=== PATIENT | male | born 1980 | race Caucasian/White ===

== ENCOUNTER 2017-11-02 06:32 | Emergency (ER) | payer OTHER ==
[~2017-11-02] VITALS: Ht 185.4 cm; Wt 93.0 kg
[~2017-11-02 06:32] MED LIST: ACETAMINOPHEN-1 EAC1 PO; CELEBREX 200 M200 M1 PO; CEPHALEXIN 500500 M3 PO; CIPROFLOXACIN500 M1 PO; IBUPROFEN 800800 M1 PO; KEFLEX500 MG PO; NOHOMEMEDICATIONS
[2017-11-02 07:04] LABS: INFLUENZA A ANTIGEN None Detected (None Detect); INFLUENZA B ANTIGEN None Detected (None Detect)
[2017-11-02 07:25] LABS: HEMATOCRIT 43.1 % (42.0-52.0); HEMOGLOBIN 14.8 gm/dL (14.0-18.0); MCH 30.2 pg (26.0-34.0); MCHC 34.3 g/dL (28.0-37.0); MCV 88.1 fL (80.0-100.0); NUCLEATED RBCS 0 /100WBC; PLATELET COUNT* 170 thou/uL (150-400); RBC 4.89 mil/uL (4.50-6.00); WBC 4.9 thou/uL (4.0-11.0)
[2017-11-02 07:36] LABS: ANION GAP 6 mmol/L (7-16); BUN 14 mg/dL (7-18); CALCIUM 9.5 mg/dL (8.5-10.1); CHLORIDE 103 mmol/L (98-107); CO2 30 mmol/L (21-32); GLUCOSE 104 mg/dL (70-99); POTASSIUM 4.2 mmol/L (3.5-5.1); SODIUM 139 mmol/L (136-145)
[2017-11-02 07:43] LABS: ALBUMIN 3.9 g/dL (3.4-5.0); ALKALINE PHOSPHATASE 83 U/L (46-116); SGOT 41 U/L (15-37); SGPT 109 U/L (30-65); TOTAL BILIRUBIN 0.4 mg/dL (<0.1-1.0); TOTAL PROTEIN 7.7 g/dL (6.4-8.2); TROPONIN-I LEVEL <0.06 ng/mL (<0.06)
[2017-11-02 07:51] LABS: ABSOLUTE LYMPHOCYTES 0.1 thou/uL (0.8-5.3); ABSOLUTE MONOCYTES 0.3 thou/uL (0.0-1.2); ABSOLUTE NEUTROPHILS 4.5 thou/uL (1.6-8.1); PLATELET ESTIMATE ADEQUATE
[2017-11-02] MEDS ORDERED: ZPAK PO (07:51)
[2017-11-02] MEDS ORDERED: PREDNISONE 20 M20 M1 PO (07:51)
[2017-11-02 07:52] LABS: ANISOCYTOSIS 1+; POIKILOCYTOSIS 1+
[2017-11-02 08:02] VITALS: BP 140/93
--- NOTE | 2017-11-02 16:37 | EKG ---
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
== END 2017-11-02 08:03 | disposition home or self-care (01) ==
LOC: M.ERS 06:32
PROVIDERS: Emergency Medicine; Family Medicine
DX: R07.89 Other chest pain (principal); J06.9 Acute upper respiratory infection, unspecified

== ENCOUNTER → 2020-04-17 | Outpatient (CLI) | payer OTHER ==
[~2020-04-17] MED LIST changes: +PREDNISONE 20 M20 M1 PO; +ZPAK PO
== END ==
LOC: M.ULTRA 13:17
PROVIDERS: ATTEND Family Medicine
DX: N50.811 Right testicular pain (principal)

== ENCOUNTER 2020-09-16 13:53 | Emergency (ER) | payer OTHER ==
[~2020-09-16] VITALS: Ht 182.9 cm; Wt 93.0 kg
[2020-09-16 14:11] LABS: ABSOLUTE EOSINOPHILS 0.2 thou/uL (0.0-0.7); ABSOLUTE LYMPHOCYTES 2.3 thou/uL (0.8-5.3); ABSOLUTE MONOCYTES 0.5 thou/uL (0.0-1.2); BASOPHILS 0.5 %; EOSINOPHILS 2.5 %; HEMATOCRIT 43.7 % (42.0-52.0); HEMOGLOBIN 15.3 gm/dL (14.0-18.0); LYMPHOCYTES 32.7 %; MCH 31.1 pg (26.0-34.0); MCV 88.9 fL (80.0-100.0); MONOCYTES 7.2 %; NUCLEATED RBCS 0 /100WBC; PLATELET COUNT* 226 thou/uL (150-400); POLYS 57.1 %; RBC 4.91 mil/uL (4.50-6.00); RDW-CV 12.6 % (10.5-14.5); WBC 7.1 thou/uL (4.0-11.0)
[2020-09-16 14:22] LABS: CALCIUM 8.5 mg/dL (8.5-10.1); POTASSIUM 4.1 mmol/L (3.5-5.1)
[2020-09-16 14:26] LABS: APTT 27.5 Seconds (25.0-31.3); PROTIME 10.7 Seconds (9.20-11.50)
[2020-09-16 14:34] LABS: ALBUMIN 3.9 g/dL (3.4-5.0); CK-MB MASS 2.1 ng/mL (<0.5-3.6); MAGNESIUM 1.8 mg/dL (1.8-2.4); TOTAL BILIRUBIN 0.3 mg/dL (<0.1-1.0); TOTAL PROTEIN 7.6 g/dL (6.4-8.2)
[2020-09-16 14:50] VITALS: BP 137/89
--- NOTE | 2020-09-17 09:07 | EKG ---
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 : 1980 Requested By: Bill Srivastava Order Number: [id number] MD: Onesimo Arango Measurements Intervals [place] Rate: 60 P: 48 [place]: 177 QRS: 29 QRSD: 96 T: 44 QT: 409 QTc: 409 Interpretive Statements Sinus rhythm Baseline wander in lead(s) V4 Compared to ECG 11/02/2017 06:39:10 T-wave abnormality no longer present Electronically Signed On 09-17-2020 9:07:34 NURSING PROGRAM DIRECTOR by Onesimo Arango [email or web address] <ELECTRONICALLY SIGNED> By: Bob Arango MD, FACC 09/17/20 0907 1358 1358 Bob Arango MD, [facility] /EPI
== END 2020-09-16 14:51 | disposition home or self-care (01) ==
LOC: M.ERS 13:53
PROVIDERS: Family Medicine
DX: R07.89 Other chest pain (principal); Z79.899 Other long term (current) drug therapy